=== PATIENT | female | born 1965 | race Caucasian/White ===

== ENCOUNTER 2023-06-02 20:47 | Emergency (ER) | payer MEDICARE, MEDICAID, SELFPAY ==
[2023-06-02 20:48] VITALS: BP 120/82; PULSE 66; RESP 18; TEMP 36.6; O2SAT 98; BMI 62.0
--- NOTE | 2023-06-02 20:52 | ECG_ITS ---
[facility] Test Date: 2023-06-02 Pat Name: LIGIA OQUENDO Department: Room: - Gender: Female Registered Nurse Cardiovascular Icu: : 1965 Requested By: ALESSANDRO QUILES Order Number: [id number] Reading MD: ALESSANDRO QUILES Measurements Intervals [place] Rate: 63 P: -30 [place]: 192 QRS: 70 QRSD: 72 T: 76 QT: 420 QTc: 427 Interpretive Statements 1100 Sinus rhythm 1102 Sinus arrhythmia 9110 normal ECG No previous ECG available for comparison Electronically Signed On 06-03-2023 5:53:15 EDT by ALESSANDRO QUILES
--- NOTE | 2023-06-02 20:57 | ED.WEAKNESS1 ---
HPI - Weakness General Chief complaint: Weakness Stated complaint: General Weakness, Unable to Ambulate Time Seen by Provider: 06/02/23 20:51 Mode of arrival: ambulance Limitations: no limitations History of Present Illness HPI Narrative: The patient presenting to the ER with episodes of weakness in her legs that comes and goes and usually affects both legs sometimes arms, she mentioned that she had a history of none injury rhabdo that according to her would require her to be admitted and the patient denies any other complaints of dizziness nausea vomiting No other concerns Related Data Home Medications Medication Instructions Recorded Confirmed acetaminophen 325 mg capsule 650 mg PO Q6H PRN fever or pain 06/02/23 06/02/23 amlodipine 5 mg tablet 5 mg PO DAILY 06/02/23 06/02/23 apixaban 5 mg tablet (Eliquis) 5 mg PO Q12H 06/02/23 06/02/23 aspirin 81 mg capsule 81 mg PO DAILY 06/02/23 06/02/23 bupropion HCl 150 mg tablet,12 hr 300 mg PO DAILY 06/02/23 06/02/23 sustained-release empagliflozin 25 mg tablet 25 mg PO DAILY 06/02/23 06/02/23 (Jardiance) miconazole nitrate 2 % topical 1 applic topical DAILY PRN yeast 06/02/23 06/02/23 powder (Zeasorb AF) montelukast 10 mg tablet 10 mg PO DAILY 06/02/23 06/02/23 sertraline 100 mg tablet 200 mg PO DAILY 06/02/23 06/02/23 sotalol 120 mg tablet 120 mg PO BID 06/02/23 06/02/23 spironolactone 25 mg tablet 25 mg PO DAILY 06/02/23 06/02/23 Allergies Allergy/AdvReac Type Severity Reaction Status Date / Time [id number]-[id number]-[id number] Reductase Allergy Severe Verified 06/02/23 20:56 Inhibitor Review of Systems ROS Status of ROS 10 or more systems reviewed and unremarkable except as noted in history and below PFSH PFS Social History Smoking status: Current every day smoker Exam Narrative Exam Narrative: Nurses notes and vital signs reviewed and patient is not hypoxic. General: Well-appearing and in no apparent distress. Skin: Warm, dry, no pallor noted. No rash. Head: Normocephalic, atraumatic. Neck: Supple, non-tender. Eye: Pupils are equal, round and EOMI. No scleral icterus. Ears, Nose, Mouth, and Throat: TM are clear, no nasal mucosal hypertrophy. Oral mucosa is moist, no posterior oropharynx erythema, uvula is mid-line Cardiovascular: Regular Rate and Rhythm without murmur, gallop or rub. Respiratory: No accessory muscle use or respiratory distress. Lungs are clear to auscultation, no wheezing, rales or rhonchi Chest Wall: no tenderness Back: No midline thoracic or lumbar vertebral tenderness. No CVA tenderness Musculoskeletal: normal ROM, no calf or popliteal tenderness, no lower extremity edema/swelling GI: Abdomen is soft, non-distended. Normal bowel sounds. No masses appreciated. No tenderness to palpation. No rebound, guarding, or rigidity noted. Neurological: A&O x4. No cranial nerve dysfunction observed. No truncal ataxia. Moves all extremities. Sensation intact. Psychiatric: Cooperative and interactive. Normal mood and affect. Constitutional Vital Signs, click to edit/add: Last Vital Signs Temp 97.8 F 06/02/23 20:48 Pulse 69 06/03/23 05:51 Resp 16 06/03/23 05:51 BP 132/74 06/03/23 05:51 Pulse Ox 96 06/03/23 05:51 O2 Del Method Room Air 06/02/23 20:48 Course Vital Signs Vital signs: Vital Signs Temperature 97.8 F 06/02/23 20:48 Pulse Rate 66 06/02/23 20:48 Respiratory Rate 18 06/02/23 20:48 Blood Pressure 120/82 06/02/23 20:48 Pulse Oximetry 98 06/02/23 20:48 Oxygen Delivery Method Room Air 06/02/23 20:48 Temperature 97.8 F 06/02/23 20:48 Pulse Rate 69 06/03/23 05:51 Respiratory Rate 16 06/03/23 05:51 Blood Pressure 132/74 06/03/23 05:51 Pulse Oximetry 96 06/03/23 05:51 Oxygen Delivery Method Room Air 06/02/23 20:48 MDM - Weakness MDM Narrative Medical decision making narrative: The patient EKG showing sinus rhythm with a heart rate of [address] elevation or depression The patient chemistry shows mild elevation of the CK that is not enough to diagnose the patient with rhabdo the patient also had some mild acute kidney injury she was given 1 L of fluid The patient rest of the CBC and chemistry showed no acute significant pathology The patient was provided with fluids in the ER after which she was feeling better she was discharged home with instruction to hydrate better The patient is to follow up with primary care physician in next 2-3 days or to return to the emergency department should any of the signs or symptoms worsen or new symptoms develop. The patient agrees with the following Diagnosis and Treatment plan and the patient will be discharged home. Lab Data Labs: Lab Results 06/02/23 Range/Units 21:15 WBC 10.1 (4.0-11.0) 10^3/uL RBC 4.60 (4.20-5.40) 10^6/uL Hgb 14.7 (12.0-16.0) g/dL Hct 45.9 (36.0-48.0) % MCV 99.8 H (81.0-99.0) fL MCH 32.0 (26.7-34.0) pg MCHC 32.0 (29.9-35.2) g/dL RDW 13.1 (11.0-15.0) % Plt Count 242 (150-450) 10^3/uL MPV 10.9 (9.5-13.5) fL Neut % (Auto) 72.5 (43.0-75.0) % Lymph % (Auto) 16.7 L (20.5-60.0) % [place] % (Auto) 8.2 (1.7-12.0) % Eos % (Auto) 1.5 (0.9-7.0) % Baso % (Auto) 0.7 (0.2-2.0) % Neut # (Auto) 7.3 H (1.4-6.5) 10^3/uL Lymph # (Auto) 1.7 (1.2-3.8) 10^3/uL [place] # (Auto) 0.8 (0.3-0.8) 10^3/uL Eos # (Auto) 0.2 (0.0-0.7) 10^3/uL Baso # (Auto) 0.1 (0.0-0.1) 10^3/uL Abs Immat Gran (auto) 0.04 H (0.00-0.03) 10^3/uL Imm/Tot Granulo (auto) 0.4 (0.0-0.5) % Sodium 141 (136-145) mmol/L Potassium 3.8 (3.5-5.1) mmol/L Chloride 105 (98-107) mmol/L Carbon Dioxide 26.6 (21.0-32.0) mmol/L Anion Gap 13.2 BUN 12.0 (7.0-18.0) mg/dL Creatinine 1.18 H (0.55-1.02) mg/dL Est GFR ( Amer) 57 L (>=60) Est GFR (Non-Af Amer) 47 L (>=60) BUN/Creatinine Ratio 10.2 Glucose 131 H (74-106) mg/dL Calcium 9.2 (8.5-10.1) mg/dL Magnesium 1.9 (1.8-2.4) mg/dL Total Bilirubin 0.5 (0.2-1.0) mg/dL AST 66 H (15-37) U/L ALT 33 (14-59) U/L Alkaline Phosphatase 100 (46-116) U/L Total Creatine Kinase 1349 H* (26-192) U/L Troponin I High Sens 13.9 (4.0-51.3) pg/mL Total Protein 7.3 (6.4-8.2) g/dL Albumin 3.3 L (3.4-5.0) g/dL Globulin 4.0 g/dL Albumin/Globulin Ratio 0.8 Discharge Plan Discharge Chief Complaint: Weakness Clinical Impression: Muscle weakness, Dehydration Patient Disposition: Home, Self-Care Time of Disposition Decision: 05:44 Condition: Good Prescriptions / Home Meds: No Action amlodipine 5 mg tablet 5 mg PO DAILY aspirin 81 mg capsule 81 mg PO DAILY Eliquis 5 mg tablet 5 mg PO Q12H bupropion HCl 150 mg tablet sustained-release 12 hr 300 mg PO DAILY Jardiance 25 mg tablet 25 mg PO DAILY montelukast 10 mg tablet 10 mg PO DAILY sertraline 100 mg tablet 200 mg PO DAILY sotalol 120 mg tablet 120 mg PO BID spironolactone 25 mg tablet 25 mg PO DAILY miconazole nitrate [Zeasorb AF] 2 % powder 1 applic TOPICAL DAILY PRN (Reason: yeast) acetaminophen 325 mg capsule 650 mg PO Q6H PRN (Reason: fever or pain) Instructions: Dehydration (ED) Stand Alone Forms: Portal Instructions Referrals: [facility]ak Mueller [Primary Care Provider] - 1 week
[2023-06-02 21:20] VITALS: PULSE 61
[2023-06-02 21:49] LABS: Basophils Absolute Auto 0.1 10^3/uL (0.0-0.1); Basophils Percent Auto 0.7 % (0.2-2.0); Eosinophils Absolute Auto 0.2 10^3/uL (0.0-0.7); Eosinophils Percent Auto 1.5 % (0.9-7.0); Hematocrit 45.9 % (36.0-48.0); Hemoglobin 14.7 g/dL (12.0-16.0); Immature Granulocytes Abs Auto 0.04 10^3/uL (0.00-0.03); Immature Granulocytes Pct Auto 0.4 % (0.0-0.5); Lymphocytes Absolute Auto 1.7 10^3/uL (1.2-3.8); Lymphocytes Percent Auto 16.7 % (20.5-60.0); Mean Corpuscular Volume 99.8 fL (81.0-99.0); Mean Platelet Volume 10.9 fL (9.5-13.5); Monocytes Absolute Auto 0.8 10^3/uL (0.3-0.8); Monocytes Percent Auto 8.2 % (1.7-12.0); Neutrophils Absolute Auto 7.3 10^3/uL (1.4-6.5); Neutrophils Percent Auto 72.5 % (43.0-75.0); Platelet Count 242 10^3/uL (150-450); Red Cell Distribution Width 13.1 % (11.0-15.0); White Blood Count 10.1 10^3/uL (4.0-11.0)
[2023-06-02 22:08] LABS: Magnesium 1.9 mg/dL (1.8-2.4)
[2023-06-02 22:15] LABS: Anion Gap 13.2
[2023-06-02 22:17] LABS: Troponin I High Sensitivity 13.9 pg/mL (4.0-51.3)
[2023-06-02 22:24] LABS: Alanine Aminotransferase 33 U/L (14-59); Albumin Globulin Ratio 0.8; Albumin Level 3.3 g/dL (3.4-5.0); Alkaline Phosphatase 100 U/L (46-116); Aspartate Amino Transferase 66 U/L (15-37); BUN Creatinine Ratio 10.2; Bilirubin Total 0.5 mg/dL (0.2-1.0); Calcium 9.2 mg/dL (8.5-10.1); Carbon Dioxide 26.6 mmol/L (21.0-32.0); Chloride 105 mmol/L (98-107); Estimated GFR (African America 57 (>=60); Estimated GFR (Non-African Ame 47 (>=60); Glucose 131 mg/dL (74-106); Potassium 3.8 mmol/L (3.5-5.1); Sodium 141 mmol/L (136-145); Total Protein 7.3 g/dL (6.4-8.2)
[2023-06-02 22:29] LABS: Creatine Kinase 1349 U/L (26-192)
[2023-06-02] MEDS: 0.9 % SODIUM CHLORIDE 1,000 ML 1000 ML IV (22:45)
[2023-06-03 05:51] VITALS: BP 132/74; PULSE 69; RESP 16; O2SAT 96
== END 2023-06-03 08:05 | disposition home or self-care (01) ==
PROVIDERS: Emergency Provider Emergency Medicine; PCP Physician Assistant
DX: E86.0 Dehydration (principal); M62.81 Muscle weakness (generalized); Z79.82 Long term (current) use of aspirin; Z79.01 Long term (current) use of anticoagulants; Z79.899 Other long term (current) drug therapy; F17.210 Nicotine dependence, cigarettes, uncomplicated
CPT/HCPCS: 36415; 80053; 80307; 82550; 83735; 84484; 85025; 93005; 96360; 99284